=== PATIENT | male | born 1995 | race Caucasian/White ===

== ENCOUNTER 2017-12-31 15:20 | Emergency (ER) | payer BC ==
[2017-12-31 15:40] VITALS: BP 115/84
--- NOTE | 2017-12-31 15:58 | UC ---
Abdominal Pain Male HPI - HPI Summary HPI Summary: Pt presents with mild luq discomfort for the last week. He tells me that about 1.5 weeks ago he had the "stomach bug" with diarrhea and a day of vomiting. Those symptoms have cleared. Now he complains of mild "gurgling" in his stomach with lots of "burping". Some nausea occasionally. When asked about his diet, he says he eats a lot fried food, hamburgers, pizza, and different types of subs. He has not taken anything OTC for this. Denies fever, chills, chest pain, SOB. - History of Current Complaint Chief Complaint: UCGI Stated Complaint: STOMACH ACHE/VOMMITTING Time Seen by Provider: 12/31/17 15:58 Hx Obtained From: Patient Onset/Duration: Gradual Onset Severity Initially: Mild Severity Currently: Mild Pain Intensity: 1 Pain Scale Used: 0-10 Numeric - Allergies/Home Medications Allergies/Adverse Reactions: Allergies Allergy/AdvReac Type Severity Reaction Status Date / Time No Known Allergies Allergy Verified 12/31/17 15:38 PMH/Surg Hx/FS Hx/Imm Hx Previously Healthy: Yes - Surgical History Surgical History: None - Family History Known Family History: Positive: None - Social History Occupation: Student Lives: Dormitory/Roommates Alcohol Use: Rare Substance Use Type: None Smoking Status (MU): Never Smoked Tobacco Review of Systems Constitutional: Negative Skin: Negative Respiratory: Negative Cardiovascular: Negative Gastrointestinal: Abdominal Pain Musculoskeletal: Negative Neurological: Negative Psychological: Negative All Other Systems Reviewed And Are Negative: Yes Physical Exam - Summary Physical Exam Summary: GENERAL: NAD. WDWN. No pain distress. SKIN: No rashes, sores, ulcers, masses, lesions. NECK: Supple. Nontender. No lymphadenopathy. CHEST: CTAB. No r/r/w. No accessory muscle use. Breathing comfortably and in no distress. CV: RRR. Without m/r/g. Pulses intact. Brisk cap refill. ABDOMEN: Soft. NTTP. No distention or guarding. No organomegaly. No CVA tenderness. Bowel sounds present x4. NEURO: Alert. CN II-XII grossly intact. PSYCH: Age appropriate behavior. Triage Information Reviewed: Yes Vital Signs: Initial Vital Signs Temp 97.6 F 12/31/17 15:36 Pulse 102 12/31/17 15:36 Resp 16 12/31/17 15:36 BP 115/84 12/31/17 15:36 Pulse Ox 98 12/31/17 15:36 Abd Pain Male Course/Dx - Course Course Of Treatment: Suspect acid reflux or esophagitis from recent stomach bug. Advised to try OTC zantac daily - go to ED if symptoms persist or worsen. - Differential Dx/Clinical Impression Provider Diagnoses: GERD Discharge - Sign-Out/Discharge Documenting (check all that apply): Discharge - Discharge Plan Condition: Stable Disposition: HOME Prescriptions: Ranitidine TAB (NF) [Zantac TAB (NF)] 150 mg PO DAILY #14 tab Patient Education Materials: Diet for Stomach Ulcers and Gastritis (ED), Gastroesophageal Reflux Disease (ED) Referrals: Non Staff,Doctor [Primary Care Provider] - Additional Instructions: If you develop a fever, shortness of breath, chest pain, new or worsening symptoms - please call your PCP or go to the ED. - Billing Disposition and Condition Condition: STABLE Disposition: HOME
== END 2017-12-31 16:15 | disposition home or self-care (01) ==
LOC: UCCORT 15:20
DX: K21.9 Gastro-esophageal reflux disease without esophagitis (principal)
CPT/HCPCS: 99202; G0463

== ENCOUNTER 2018-01-24 17:44 | Emergency (ER) | payer BC ==
[2018-01-24 18:20] VITALS: BP 132/76
--- NOTE | 2018-01-24 18:43 | ED ---
Abdominal Pain/Male - HPI Summary HPI Summary: 23 yr old with complaint of epigastric and left upper quad pain from time to time. He has had no pain in over a day now. He last drank ETOH wednesday night and had some intermittent pain yesterday. No NVD. He has some diarrhea late November, followed by some upper abd pain, and came here, was put on H2 afia, and he states it had minimal effect. Over the past three weeks he has had some intermittent brief symptoms of discomfort in the upper abdomen. No NVD. No blood in stool, no melena. His father has a history of acid reflux. he has not had any CP or SOB. He has not had worse symptoms with drinking ETOH or eating. He is from the [facility]. He is returning home in the next couple of weeks from School. - History of Current Complaint Chief Complaint: UCAbdominalPain Stated Complaint: ABD PAIN RECHECK Time Seen by Provider: 01/24/18 18:25 Pain Intensity: 0 - Allergies/Home Medications Allergies/Adverse Reactions: Allergies Allergy/AdvReac Type Severity Reaction Status Date / Time No Known Allergies Allergy Verified 01/24/18 18:12 PMH/Surg Hx/FS Hx/Imm Hx Infectious Disease History: No Infectious Disease History: Denies: Traveled Outside the in Last 30 Days - Family History Known Family History: Positive: None - Social History Occupation: Student Lives: With Family Alcohol Use: Occasionally Substance Use Type: Reports: None Smoking Status (MU): Never Smoked Tobacco Review of Systems Constitutional: Negative Positive: Abdominal Pain. Negative: Vomiting, Diarrhea, Nausea All Other Systems Reviewed And Are Negative: Yes Physical Exam Triage Information Reviewed: Yes Vital Signs On Initial Exam: Initial Vitals Temp Pulse Resp BP Pulse Ox 98.3 F 81 16 132/76 100 01/24/18 18:13 01/24/18 18:13 01/24/18 18:13 01/24/18 18:13 01/24/18 18:13 Vital Signs Reviewed: Yes Appearance: Positive: Well-Appearing, No Pain Distress Skin: Positive: Warm, Skin Color Reflects Adequate Perfusion Head/Face: Positive: Normal Head/Face Inspection Eyes: Positive: EOMI ENT: Positive: Normal ENT inspection Neck: Positive: Supple, Nontender Respiratory/Lung Sounds: Positive: Clear to Auscultation, Breath Sounds Present Cardiovascular: Positive: RRR. Negative: Murmur Abdomen Description: Positive: Nontender, No Organomegaly, Soft. Negative: CVA Tenderness (R), CVA Tenderness (L), Distended, Guarding Musculoskeletal: Positive: Strength/ROM Intact Neurological: Positive: Sensory/Motor Intact, Alert, Oriented to Person Place, Time, CN Intact II-III, Normal Gait Psychiatric: Positive: Normal - [place] Coma Scale Best Eye Response: 4 - Spontaneous Best Motor Response: 6 - Obeys Commands Best Verbal Response: 5 - Oriented Coma Scale Total: 15 Diagnostics - Vital Signs Vital Signs Temp Pulse Resp BP Pulse Ox 01/24/18 18:13 98.3 F 81 16 132/76 100 - Laboratory Lab Statement: Any lab studies that have been ordered have been reviewed, and results considered in the medical decision making process. Abdominal Pain Fem Course/Dx - Course Course Of Treatment: 23 yr old male with upper abdominal pain as recent as yesterday, but none in over a day, and he has benign exam and no trouble with food tolerance. At this point I have told him to go to the ER for any return of symptoms and further work up can be done there. Etiology for symptoms not known at this point, but he has benign exam and is in no distress now. He has been advised to follow up with his PMD in [place] upon return home at the very least if he has no further symptoms. - Diagnoses Provider Diagnoses: Abdominal pain Discharge - Sign-Out/Discharge Documenting (check all that apply): Discharge/Admit/Transfer - Discharge Plan Condition: Good Disposition: HOME Patient Education Materials: Abdominal Pain (ED) [place]: [facility] [place]] [facility] [Outside] Non Staff,Doctor [Primary Care Provider] - Additional Instructions: IF YOU HAVE ANY RETURN OF YOUR PAIN YOU SHOULD GO TO THE ER DURING THE EPISODE. [facility] [address] [place] [address] in [place], [place] DirectionsWebsite Address: Tiffani [address], [place] [address] Open today Open 24 hours - Billing Disposition and Condition Condition: GOOD Disposition: HOME
== END 2018-01-24 18:40 | disposition home or self-care (01) ==
LOC: UCCORT 17:44
DX: Z51.89 Encounter for other specified aftercare (principal); R10.10 Upper abdominal pain, unspecified
CPT/HCPCS: 99211; G0463